=== PATIENT | male | born 1940 | race Caucasian/White ===

== ENCOUNTER 2017-09-24 09:19 | Inpatient (IN) | payer MEDICARE, OTHER ==
[~2017-09-24] VITALS: Ht 177.8 cm; Wt 86.5 kg
[2017-09-24] MEDS ORDERED: SODIUM CHLORIDE 0.9% 1,000 ML IV ONE (09:24)
[2017-09-24] MEDS ORDERED: SODIUM CHLORIDE FLUSH 10ML SYR IVF ONE (09:30)
[2017-09-24] MEDS ORDERED: methylPREDNISolone SOD SUCC 125 MG/2 ML IVP ONE (09:30)
[2017-09-24] MEDS ORDERED: methylPREDNISolone SOD SUCC 125 MG/2 ML ONE (09:51)
[2017-09-24] MEDS ORDERED: PLEASE ENTER ALLERGIES MC SCH ×2 (10:00)
[2017-09-24] MEDS ORDERED: PLEASE ENTER HEIGHT AND WEIGHT MC SCH (10:00)
[2017-09-24 10:17] LABS: HEMATOCRIT 43.2 % (39.2-51.8); HEMOGLOBIN 14.3 g/dL (13.7-18.0); WHITE BLOOD COUNT 5.7 x10^3/uL (3.4-10)
[2017-09-24] MEDS ORDERED: BETH10TA12 PO (10:23)
[2017-09-24] MEDS ORDERED: ARIP10TA33 PO (10:23)
[2017-09-24] MEDS ORDERED: CHOL10003 PO (10:27)
[2017-09-24] MEDS ORDERED: TAMS0.4C2 PO (10:27)
[2017-09-24] MEDS ORDERED: RIVA20TA PO (10:27)
[2017-09-24] MEDS ORDERED: MULT1CAP19 PO (10:27)
[2017-09-24] MEDS ORDERED: FINA5TAB4 PO (10:27)
[2017-09-24] MEDS ORDERED: DIVA250T6 PO (10:27)
[2017-09-24] MEDS ORDERED: SIMV5TAB5 PO (10:27)
[2017-09-24] MEDS ORDERED: GABA600T2 PO (10:27)
[2017-09-24 10:28] LABS: ASPARTATE AMINO TRANSFERASE 56 U/L (15-37); BLOOD UREA NITROGEN 16 mg/dL (7-18)
[2017-09-24] MEDS ORDERED: morphine SULFATE 10 MG/ML, 1ML ONE (10:29)
[2017-09-24] MEDS ORDERED: AMPICILLIN/SULBACTAM 3 GM in SODIUM CHLORIDE 0.9% 100 ML IV ONE (10:30)
[2017-09-24] MEDS ORDERED: VANCOMYCIN PER PHARMACY MC PRN ×2 (10:30→13:00)
[2017-09-24] MEDS ORDERED: MORPHINE SULFATE 4 MG/ML, 1ML IVPush PRN (10:30)
[2017-09-24 10:33] LABS: IS PT STATUS REG ER OR PRE ER? YES
[2017-09-24] MEDS ORDERED: BACITRACIN ZINC OINT 500U/GM, 0.9 GM ONE (11:30)
[2017-09-24] MEDS ORDERED: PHARMACOKINETIC CONSULTATION MC ONE ×2 (12:00→14:00)
[2017-09-24] MEDS ORDERED: VANCOMYCIN 1,600 MG in SODIUM CHLORIDE 0.9% 250 ML IV ONE (12:00)
[2017-09-24] MEDS ORDERED: CIPROFLOXACIN/PMX 400MG/200ML 200 ML IV ONE (12:00)
[2017-09-24] MEDS ORDERED: hydrALAzine 20 MG/ML, 1ML IVPush PRN (12:30)
[2017-09-24] MEDS ORDERED: BISACODYL 10 MG SUPP PR PRN (12:30)
[2017-09-24] MEDS ORDERED: POLYETHYLENE GLYCOL 17 GM PACKET PO PRN (12:30)
[2017-09-24] MEDS ORDERED: ENALAPRILAT 1.25 MG/ML, 2ML IVPush PRN (12:30)
[2017-09-24] MEDS ORDERED: morphine SULFATE 10 MG/ML, 1ML IVPush PRN (12:30)
[2017-09-24] MEDS ORDERED: HEPARIN 5,000 UNITS/ML, 1ML SQ SCH (12:30)
[2017-09-24] MEDS ORDERED: ONDANSETRON 2MG/ML, 2ML IVPush PRN (12:30)
[2017-09-24] MEDS ORDERED: VANCOMYCIN PMX 1GM/200ML 200 ML IV ONE (13:00)
[2017-09-24 13:07] LABS: C-REACTIVE PROTEIN, QUANT 8.4 mg/dL (0.02-0.49)
[2017-09-24 13:11] VITALS: BP 102/65
[2017-09-24] MEDS: ACETAMINOPHEN 325 MG TABLET PO PRN (13:23)
[2017-09-24] MEDS: SODIUM CHLORIDE 0.9% 1,000 ML IV SCH ×2 (13:46→22:26)
[2017-09-24] MEDS ORDERED: PHARMACOKINETIC MONITORING MC PRN (14:00)
[2017-09-24] MEDS: OXYcodone IR 5MG TABLET PO PRN ×2 (14:24→20:41)
[2017-09-24] MEDS: PIPERACILLIN/TAZO/PMX 3.375GM 50 ML IV SCH ×2 (14:25→20:40)
[2017-09-24] MEDS: BETHANECHOL 10 MG TABLET PO SCH ×2 (16:30→20:40)
[2017-09-24] MEDS: GABAPENTIN 300 MG CAPSULE PO SCH ×2 (16:30→20:40)
[2017-09-24] MEDS: DIVALPROEX 250 MG TABLET.DR PO SCH ×2 (16:30→20:40)
[2017-09-24 19:35] VITALS: BP 148/90
[2017-09-24] MEDS: SIMVASTATIN 5 MG TABLET PO SCH (20:41)
[2017-09-25 00:56] VITALS: BP 90/50
[2017-09-25 01:00] VITALS: BP 98/59
[2017-09-25] MEDS: PIPERACILLIN/TAZO/PMX 3.375GM 50 ML IV SCH ×4 (03:02→20:47)
[2017-09-25] MEDS: OXYcodone IR 5MG TABLET PO PRN ×2 (04:04→19:58)
[2017-09-25 06:09] LABS: HEMATOCRIT 34.7 % (39.2-51.8); HEMOGLOBIN 11.6 g/dL (13.7-18.0); WHITE BLOOD COUNT 4.9 x10^3/uL (3.4-10)
[2017-09-25 06:13] LABS: ASPARTATE AMINO TRANSFERASE 34 U/L (15-37); BLOOD UREA NITROGEN 19 mg/dL (7-18)
[2017-09-25 06:45] VITALS: BP 85/53
[2017-09-25 07:09] LABS: DIFF TOTAL CELLS COUNTED 100 CELL DIFF
[2017-09-25 07:38] LABS: ANISOCYTOSIS 1+; VERIFY COUNTS? YES
[2017-09-25] MEDS: CHOLECALCIFEROL 1,000 UNIT TABLET PO SCH (07:53)
[2017-09-25] MEDS: RIVAROXABAN 20 MG TABLET PO SCH (07:54)
[2017-09-25] MEDS: GABAPENTIN 300 MG CAPSULE PO SCH ×3 (07:55→20:47)
[2017-09-25] MEDS: DIVALPROEX 250 MG TABLET.DR PO SCH ×3 (07:55→22:22)
[2017-09-25] MEDS: SENNA/DOCUSATE TABLET PO SCH (07:55)
[2017-09-25] MEDS: FINASTERIDE 5 MG TABLET PO SCH (07:55)
[2017-09-25] MEDS: BETHANECHOL 10 MG TABLET PO SCH ×3 (07:55→20:48)
[2017-09-25] MEDS: MULTIVITAMIN 1 TABLET PO SCH (07:55)
[2017-09-25] MEDS: ARIPIPRAZOLE 10 MG TABLET PO SCH (07:55)
[2017-09-25] MEDS: TAMSULOSIN 0.4 MG CAP.ER.24H PO SCH (07:56)
[2017-09-25 08:11] VITALS: BP 96/68
[2017-09-25] MEDS ORDERED: VANCOMYCIN 1,600 MG in SODIUM CHLORIDE 0.9% 250 ML IV SCH (12:00)
[2017-09-25 13:21] VITALS: BP 90/53
[2017-09-25 20:00] VITALS: BP 91/56
[2017-09-25] MEDS ORDERED: SIMVASTATIN 20 MG TABLET ONE (20:39)
[2017-09-25] MEDS: SIMVASTATIN 5 MG TABLET PO SCH (20:47)
[2017-09-26 02:00] VITALS: BP 90/52
[2017-09-26] MEDS: PIPERACILLIN/TAZO/PMX 3.375GM 50 ML IV SCH ×4 (03:32→22:48)
[2017-09-26 03:42] VITALS: BP 95/50
[2017-09-26 05:41] LABS: BLOOD UREA NITROGEN 19 mg/dL (7-18)
[2017-09-26] MEDS: VANCOMYCIN 1,600 MG in SODIUM CHLORIDE 0.9% 250 ML IV SCH (05:50)
[2017-09-26 07:05] VITALS: BP 105/68
[2017-09-26] MEDS: GABAPENTIN 300 MG CAPSULE PO SCH ×3 (09:56→22:37)
[2017-09-26] MEDS: SENNA/DOCUSATE TABLET PO SCH (09:56)
[2017-09-26] MEDS: CHOLECALCIFEROL 1,000 UNIT TABLET PO SCH (09:56)
[2017-09-26] MEDS: MULTIVITAMIN 1 TABLET PO SCH (09:56)
[2017-09-26] MEDS: ARIPIPRAZOLE 10 MG TABLET PO SCH (09:56)
[2017-09-26] MEDS: RIVAROXABAN 20 MG TABLET PO SCH (09:56)
[2017-09-26] MEDS: TAMSULOSIN 0.4 MG CAP.ER.24H PO SCH (09:56)
[2017-09-26] MEDS: FINASTERIDE 5 MG TABLET PO SCH (09:57)
[2017-09-26] MEDS: DIVALPROEX 250 MG TABLET.DR PO SCH ×3 (09:57→22:37)
[2017-09-26] MEDS: BETHANECHOL 10 MG TABLET PO SCH ×2 (09:57→22:37)
[2017-09-26 14:32] VITALS: BP 94/59
[2017-09-26 19:10] VITALS: BP 94/54
[2017-09-26] MEDS: SIMVASTATIN 5 MG TABLET PO SCH (22:38)
[2017-09-27] MEDS: VANCOMYCIN 1,600 MG in SODIUM CHLORIDE 0.9% 250 ML IV SCH (01:32)
[2017-09-27 01:48] VITALS: BP 115/67
[2017-09-27] MEDS: PIPERACILLIN/TAZO/PMX 3.375GM 50 ML IV SCH ×4 (05:17→23:40)
[2017-09-27 05:27] LABS: HEMATOCRIT 40.5 % (39.2-51.8); HEMOGLOBIN 13.3 g/dL (13.7-18.0)
[2017-09-27 05:58] LABS: BLOOD UREA NITROGEN 14 mg/dL (7-18)
[2017-09-27 08:49] VITALS: BP 125/67
[2017-09-27] MEDS: CHOLECALCIFEROL 1,000 UNIT TABLET PO SCH (09:44)
[2017-09-27] MEDS: RIVAROXABAN 20 MG TABLET PO SCH (09:45)
[2017-09-27] MEDS: DIVALPROEX 250 MG TABLET.DR PO SCH ×3 (09:45→20:28)
[2017-09-27] MEDS: FINASTERIDE 5 MG TABLET PO SCH (09:46)
[2017-09-27] MEDS: ARIPIPRAZOLE 10 MG TABLET PO SCH (09:46)
[2017-09-27] MEDS: MULTIVITAMIN 1 TABLET PO SCH (09:46)
[2017-09-27] MEDS: GABAPENTIN 300 MG CAPSULE PO SCH ×3 (09:47→20:29)
[2017-09-27] MEDS: TAMSULOSIN 0.4 MG CAP.ER.24H PO SCH (09:47)
[2017-09-27] MEDS: BETHANECHOL 10 MG TABLET PO SCH ×2 (09:47→20:29)
[2017-09-27] MEDS: SENNA/DOCUSATE TABLET PO SCH (09:48)
[2017-09-27] MEDS: ACETAMINOPHEN 325 MG TABLET PO PRN ×2 (09:49→20:28)
[2017-09-27] MEDS: OXYcodone IR 5MG TABLET PO PRN (12:18)
[2017-09-27 14:57] VITALS: BP 102/55
[2017-09-27 19:32] VITALS: BP 121/65
[2017-09-27] MEDS: SIMVASTATIN 5 MG TABLET PO SCH (20:29)
[2017-09-28 03:39] VITALS: BP 140/77
[2017-09-28] MEDS: PIPERACILLIN/TAZO/PMX 3.375GM 50 ML IV SCH ×3 (05:28→17:06)
[2017-09-28 07:46] VITALS: BP 131/58
[2017-09-28] MEDS: GABAPENTIN 300 MG CAPSULE PO SCH ×2 (09:55→17:06)
[2017-09-28] MEDS: ARIPIPRAZOLE 10 MG TABLET PO SCH (09:55)
[2017-09-28] MEDS: MULTIVITAMIN 1 TABLET PO SCH (09:55)
[2017-09-28] MEDS: BETHANECHOL 10 MG TABLET PO SCH (09:55)
[2017-09-28] MEDS: FINASTERIDE 5 MG TABLET PO SCH (09:55)
[2017-09-28] MEDS: RIVAROXABAN 20 MG TABLET PO SCH (09:56)
[2017-09-28] MEDS: CHOLECALCIFEROL 1,000 UNIT TABLET PO SCH (09:56)
[2017-09-28] MEDS: SENNA/DOCUSATE TABLET PO SCH (09:56)
[2017-09-28] MEDS: TAMSULOSIN 0.4 MG CAP.ER.24H PO SCH (10:00)
[2017-09-28] MEDS: DIVALPROEX 250 MG TABLET.DR PO SCH ×2 (10:00→17:06)
[2017-09-28] MEDS ORDERED: BETH10TA12 PO (10:29)
[2017-09-28] MEDS ORDERED: LACT1CAP24 PO (10:29)
[2017-09-28] MEDS ORDERED: PIPE3.373 IV (10:29)
[2017-09-28] MEDS ORDERED: OXYC5TAB3 PO (10:29)
[2017-09-28 14:53] VITALS: BP 107/59
== END 2017-09-28 18:34 | DRG 871 ==
LOC: ED 10:20 → EDIP 11:53 → 4WST 12:50
PROVIDERS: ADMIT Internal Medicine; ATTEND Internal Medicine
PROC: 02HV33Z Insertion of Infusion Device into Superior Vena Cava, Percutaneous Approach (ICD-10-PCS; principal; 2017-09-28)
PROC: B5181ZA Fluoroscopy of Superior Vena Cava using Low Osmolar Contrast, Guidance (ICD-10-PCS; 2017-09-28)
DX: A41.9 Sepsis, unspecified organism (principal); J96.01 Acute respiratory failure with hypoxia; E44.0 Moderate protein-calorie malnutrition; L03.115 Cellulitis of right lower limb; L03.116 Cellulitis of left lower limb; N39.0 Urinary tract infection, site not specified; E78.5 Hyperlipidemia, unspecified; G89.29 Other chronic pain; Z68.27 Body mass index [BMI] 27.0-27.9, adult; F03.90 Unspecified dementia, unspecified severity, without behavioral disturbance, psychotic disturbance, mood disturbance, and anxiety; N40.0 Benign prostatic hyperplasia without lower urinary tract symptoms; R65.20 Severe sepsis without septic shock; Z86.711 Personal history of pulmonary embolism; Z16.12 Extended spectrum beta lactamase (ESBL) resistance; B96.1 Klebsiella pneumoniae [K. pneumoniae] as the cause of diseases classified elsewhere
CPT/HCPCS: 36415; 36569; 71010; 76937; 77001; 80048; 80053; 80061; 81001; 82306; 82607; 83605; 83735; 83880; 84439; 84443; 84484; 85025; 85651; 86140; 87040; 87070; 87077; 87086; 87186; 87205; 87324; 93005; 96361; 96365; 96375; J0295; J0744; J2543; J3370; C1751; J2930; J7030; J7050

== ENCOUNTER 2017-10-30 13:05 | Inpatient (IN) | payer MEDICARE, OTHER ==
[~2017-10-30] VITALS: Ht 177.8 cm; Wt 76.0 kg
[~2017-10-30 13:05] MED LIST: ARIP10TA33 PO; BETH10TA12 PO; CHOL10003 PO; DIVA250T6 PO; FINA5TAB4 PO; GABA600T2 PO; LACT1CAP24 PO; MULT1CAP19 PO; OXYC5TAB3 PO; PIPE3.373 IV; RIVA20TA PO; SIMV5TAB5 PO; TAMS0.4C2 PO
[2017-10-30] MEDS ORDERED: BACITRACIN ZINC OINT 500U/GM, 0.9 GM ONE (13:56)
[2017-10-30] MEDS ORDERED: SODIUM CHLORIDE FLUSH 10ML SYR IVF ONE (14:00)
[2017-10-30] MEDS ORDERED: SODIUM CHLORIDE 0.9% 1,000ML IVBOLUS ONE (14:00)
[2017-10-30] MEDS ORDERED: CEFTRIAXONE PMX 1GM/50ML 50 ML IVPB ONE (14:00)
[2017-10-30 14:21] LABS: HEMATOCRIT 41.6 % (39.2-51.8); HEMOGLOBIN 13.7 g/dL (13.7-18.0); WHITE BLOOD COUNT 13.5 x10^3/uL (3.4-10)
[2017-10-30 14:32] LABS: BLOOD UREA NITROGEN 21 mg/dL (7-18)
[2017-10-30] MEDS ORDERED: CEFTRIAXONE PMX 1GM/50ML 50 ML ONE (16:28)
[2017-10-30] MEDS ORDERED: ONDANSETRON ODT 4 MG PO PRN (16:30)
[2017-10-30] MEDS ORDERED: VANCOMYCIN PER PHARMACY MC PRN (16:30)
[2017-10-30] MEDS ORDERED: LABETALOL 5MG/ML, 20ML IVPush PRN (16:30)
[2017-10-30] MEDS ORDERED: ACETAMINOPHEN 325 MG TABLET PO PRN (16:30)
[2017-10-30] MEDS ORDERED: ENALAPRILAT 1.25 MG/ML, 2ML IVPush PRN (16:30)
[2017-10-30] MEDS ORDERED: DOCUSATE 100 MG CAPSULE PO PRN (16:30)
[2017-10-30] MEDS ORDERED: ONDANSETRON 2MG/ML, 2ML IVPush PRN (16:30)
[2017-10-30] MEDS ORDERED: PHARMACOKINETIC MONITORING MC PRN (18:00)
[2017-10-30] MEDS ORDERED: PHARMACOKINETIC CONSULTATION MC ONE (18:00)
[2017-10-30] MEDS: NICOTINE 7 MG/24 HR PATCH.TD24 TD SCH (18:05)
[2017-10-30] MEDS: SODIUM CHLORIDE 0.9% 1,000 ML IV SCH (18:05)
[2017-10-30] MEDS: PIPERACILLIN/TAZO/PMX 3.375GM 50 ML IV SCH ×2 (18:05→22:39)
[2017-10-30] MEDS: VANCOMYCIN 1,500 MG in SODIUM CHLORIDE 0.9% 250 ML IV SCH (19:01)
[2017-10-30 20:59] VITALS: BP 110/66
[2017-10-30] MEDS: GABAPENTIN 300 MG CAPSULE PO SCH (22:38)
[2017-10-30] MEDS: SIMVASTATIN 5 MG TABLET PO SCH (22:39)
[2017-10-30] MEDS: LACTOBACILLUS CHEW TABLET PO SCH (22:40)
[2017-10-30] MEDS: BETHANECHOL 10 MG TABLET PO SCH (22:40)
[2017-10-30] MEDS: DIVALPROEX 250 MG TABLET.DR PO SCH (22:40)
[2017-10-31 03:46] VITALS: BP 113/75
[2017-10-31] MEDS: PIPERACILLIN/TAZO/PMX 3.375GM 50 ML IV SCH ×4 (03:47→22:46)
[2017-10-31 04:56] LABS: HEMATOCRIT 37.4 % (39.2-51.8); HEMOGLOBIN 12.5 g/dL (13.7-18.0); WHITE BLOOD COUNT 7.3 x10^3/uL (3.4-10)
[2017-10-31 05:01] LABS: BLOOD UREA NITROGEN 14 mg/dL (7-18)
[2017-10-31] MEDS ORDERED: POTASSIUM CHLORIDE 20 MEQ TAB.ER.PRT PO ONE (09:00)
[2017-10-31] MEDS: CHOLECALCIFEROL 1,000 UNIT TABLET PO SCH (09:21)
[2017-10-31] MEDS: TAMSULOSIN 0.4 MG CAP.ER.24H PO SCH (09:21)
[2017-10-31] MEDS: ARIPIPRAZOLE 10 MG TABLET PO SCH (09:21)
[2017-10-31] MEDS: LACTOBACILLUS CHEW TABLET PO SCH ×3 (09:21→20:04)
[2017-10-31] MEDS: DIVALPROEX 250 MG TABLET.DR PO SCH ×3 (09:21→20:04)
[2017-10-31] MEDS: SENNA/DOCUSATE TABLET PO SCH (09:21)
[2017-10-31] MEDS: RIVAROXABAN 20 MG TABLET PO SCH (09:21)
[2017-10-31] MEDS: FINASTERIDE 5 MG TABLET PO SCH (09:21)
[2017-10-31] MEDS: GABAPENTIN 300 MG CAPSULE PO SCH ×3 (09:22→20:04)
[2017-10-31] MEDS: BETHANECHOL 10 MG TABLET PO SCH ×2 (09:22→20:04)
[2017-10-31] MEDS: MULTIVITAMIN 1 TABLET PO SCH (09:22)
[2017-10-31 09:31] VITALS: BP 127/69
[2017-10-31] MEDS: SODIUM CHLORIDE 0.9% 1,000 ML IV SCH (11:21)
[2017-10-31 12:48] VITALS: BP 119/75
[2017-10-31] MEDS: NICOTINE 7 MG/24 HR PATCH.TD24 TD SCH (17:24)
[2017-10-31] MEDS: VANCOMYCIN 1,500 MG in SODIUM CHLORIDE 0.9% 250 ML IV SCH (18:57)
[2017-10-31] MEDS: SIMVASTATIN 5 MG TABLET PO SCH (20:05)
[2017-10-31 21:51] VITALS: BP 107/71
[2017-11-01 02:41] VITALS: BP 114/53
[2017-11-01 03:02] LABS: HEMATOCRIT 40.1 % (39.2-51.8); HEMOGLOBIN 13.1 g/dL (13.7-18.0); WHITE BLOOD COUNT 8.1 x10^3/uL (3.4-10)
[2017-11-01 03:22] LABS: BLOOD UREA NITROGEN 11 mg/dL (7-18)
[2017-11-01] MEDS: SODIUM CHLORIDE 0.9% 1,000 ML IV SCH ×2 (03:30→16:44)
[2017-11-01] MEDS: PIPERACILLIN/TAZO/PMX 3.375GM 50 ML IV SCH ×4 (04:30→22:30)
[2017-11-01 07:30] VITALS: BP 120/76
[2017-11-01] MEDS: GABAPENTIN 300 MG CAPSULE PO SCH ×3 (08:27→21:17)
[2017-11-01] MEDS: MULTIVITAMIN 1 TABLET PO SCH (08:28)
[2017-11-01] MEDS: FINASTERIDE 5 MG TABLET PO SCH (08:28)
[2017-11-01] MEDS: LACTOBACILLUS CHEW TABLET PO SCH ×3 (08:28→21:17)
[2017-11-01] MEDS: DIVALPROEX 250 MG TABLET.DR PO SCH ×3 (08:28→21:17)
[2017-11-01] MEDS: SENNA/DOCUSATE TABLET PO SCH (08:29)
[2017-11-01] MEDS: ARIPIPRAZOLE 10 MG TABLET PO SCH (08:29)
[2017-11-01] MEDS: TAMSULOSIN 0.4 MG CAP.ER.24H PO SCH (08:29)
[2017-11-01] MEDS: BETHANECHOL 10 MG TABLET PO SCH ×2 (08:30→21:17)
[2017-11-01] MEDS: RIVAROXABAN 20 MG TABLET PO SCH (08:30)
[2017-11-01] MEDS: CHOLECALCIFEROL 1,000 UNIT TABLET PO SCH (08:30)
[2017-11-01] MEDS: POTASSIUM CHLORIDE 20 MEQ TAB.ER.PRT PO SCH ×2 (08:32→16:41)
[2017-11-01 16:40] VITALS: BP 110/69
[2017-11-01] MEDS: NICOTINE 7 MG/24 HR PATCH.TD24 TD SCH (16:42)
[2017-11-01] MEDS: VANCOMYCIN 1,500 MG in SODIUM CHLORIDE 0.9% 250 ML IV SCH (17:58)
[2017-11-01 20:11] VITALS: BP 120/79
[2017-11-01] MEDS: SIMVASTATIN 5 MG TABLET PO SCH (21:17)
[2017-11-02 02:20] VITALS: BP 110/70
[2017-11-02] MEDS: PIPERACILLIN/TAZO/PMX 3.375GM 50 ML IV SCH ×3 (05:44→16:07)
[2017-11-02 07:28] VITALS: BP 113/70
[2017-11-02] MEDS: DIVALPROEX 250 MG TABLET.DR PO SCH ×2 (08:47→16:06)
[2017-11-02] MEDS: LACTOBACILLUS CHEW TABLET PO SCH ×2 (08:47→16:06)
[2017-11-02] MEDS: FINASTERIDE 5 MG TABLET PO SCH (08:47)
[2017-11-02] MEDS: MULTIVITAMIN 1 TABLET PO SCH (08:47)
[2017-11-02] MEDS: CHOLECALCIFEROL 1,000 UNIT TABLET PO SCH (08:47)
[2017-11-02] MEDS: GABAPENTIN 300 MG CAPSULE PO SCH ×2 (08:47→16:08)
[2017-11-02] MEDS: RIVAROXABAN 20 MG TABLET PO SCH (08:47)
[2017-11-02] MEDS: BETHANECHOL 10 MG TABLET PO SCH (08:48)
[2017-11-02] MEDS: TAMSULOSIN 0.4 MG CAP.ER.24H PO SCH (08:48)
[2017-11-02] MEDS: SENNA/DOCUSATE TABLET PO SCH (08:49)
[2017-11-02] MEDS: ARIPIPRAZOLE 10 MG TABLET PO SCH (08:49)
[2017-11-02] MEDS: POTASSIUM CHLORIDE 20 MEQ TAB.ER.PRT PO SCH ×2 (08:52→16:08)
[2017-11-02] MEDS: SODIUM CHLORIDE 0.9% 1,000 ML IV SCH (11:03)
[2017-11-02 11:59] VITALS: BP 115/70
[2017-11-02] MEDS ORDERED: AMPI3VIA IV (12:57)
[2017-11-02] MEDS ORDERED: VANC1VIA3 IV (12:57)
[2017-11-02] MEDS: NICOTINE 7 MG/24 HR PATCH.TD24 TD SCH (16:06)
[2017-11-02 17:27] VITALS: BP 126/79
== END 2017-11-02 17:48 | DRG 603 ==
LOC: ED 14:23 → EDIP 15:20 → 4NOR 17:26
PROVIDERS: ADMIT Internal Medicine; ATTEND Internal Medicine
DX: L03.115 Cellulitis of right lower limb (principal); J44.9 Chronic obstructive pulmonary disease, unspecified; L03.116 Cellulitis of left lower limb; N40.0 Benign prostatic hyperplasia without lower urinary tract symptoms; E78.5 Hyperlipidemia, unspecified; I87.8 Other specified disorders of veins; Z66 Do not resuscitate; D72.829 Elevated white blood cell count, unspecified; F17.200 Nicotine dependence, unspecified, uncomplicated; R53.81 Other malaise; F99 Mental disorder, not otherwise specified; Z79.01 Long term (current) use of anticoagulants; Z86.711 Personal history of pulmonary embolism; Z86.718 Personal history of other venous thrombosis and embolism; Z59.0 Homelessness; Z72.89 Other problems related to lifestyle
CPT/HCPCS: 36415; 71010; 80048; 82040; 83605; 85025; 87040; 87324; 93005; 96365; 96366; J0696; J2543; J3370; J7030; J7050